=== PATIENT | female | born 1995 | race Caucasian/White ===

== ENCOUNTER 2017-02-06 19:17 | Observation (INO) | payer MEDICAID ==
[2017-02-06 19:50] VITALS: BMI 20.2
[2017-02-06] MEDS ORDERED: Sodium Chloride 0.9% 1,000 ML IV STA (20:06)
[2017-02-06] MEDS ORDERED: Morphine 2 mg/ml ISec IM STA ×2 (20:13→23:15)
[2017-02-06] MEDS ORDERED: Morphine 2 mg/ml ISec ONE (20:15)
[2017-02-06] MEDS ORDERED: Oxycodone/Acetaminophen 5/325 mg Tab PO STA (21:13)
[2017-02-06] MEDS ORDERED: Morphine 2 mg/ml ISec IVP STA (23:27)
--- NOTE | 2017-02-06 23:58 | CT ---
EXAM: CT Left Lower Extremity Without Intravenous Contrast, Femur CLINICAL HISTORY: 21 years old, female; Pain; Thigh; Left; Prior surgery; Surgery type: Tumor reduction x4; Additional info: Femur pain/ HX of tumor TECHNIQUE: Axial computed tomography images of the left femur without intravenous contrast. This CT exam was performed using one or more of the following dose reduction techniques: automated exposure control, adjustment of the mA and/or kV according to patient size, and/or use of iterative reconstruction technique. Coronal and sagittal reformatted images were created and reviewed. EXAM DATE/TIME: 02/06/2017 9:49 PM COMPARISON: Recent left femur radiographs of 02/06/2017 FINDINGS: BONES/JOINTS: Bony structures appear demineralized. Chronic-appearing deformity and inferior subluxation of the patella. No acute fractures are seen. No radiographic evidence of significant joint effusion. No evidence of lytic, destructive bony changes or aggressive periosteal reaction to suggest osteomyelitis. SOFT TISSUES: Diffusely abnormal appearance of the soft tissues. There is extensive, irregular, infiltrative soft tissue in the left thigh and hip soft tissues, anteriorly and medially. This replaces the normal anterior and medial thigh musculature. Its is associated with diffuse fatty proliferation and extensive amorphous and soft tissue calcifications. It is causing diffuse and swelling/enlargement of the left thigh. There is no definite large, measurable focal soft tissue mass seen. No evidence of a focal fluid collection containing gas to suggest an abscess. VASCULATURE: Multiple prominent superficial superficially located vessels seen, which could represent collateral vessels or venous varicosities. IMPRESSION: - Diffusely abnormal appearance of the soft tissues, with extensive, irregular, infiltrative soft tissue seen in the left thigh and hip soft tissues anteriorly and medially, which replaces the normal anterior and medial thigh musculature. This is associated with diffuse fatty proliferation and extensive soft tissue calcifications, and is causing diffuse swelling/enlargement of the left thigh. While the findings could represent marked chronic post radiation/post operative soft tissue and fatty proliferation, cannot rule out an infiltrative, complex mass with fatty and soft tissue components or acute cellulitis. Findings require clinical correlation. Also recommend direct comparison with any prior studies, if available. Alternatively, consider followup nonemergent MRI. - See above for remaining findings.
--- NOTE | 2017-02-07 00:54 | ED PDOC ---
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 Patient states she tripped and fell landed directly down on the knee. Patient states incident occurred prior to arrival. She denies fevers or chills. Patient states she has a history of an operative left thigh vascular tumor that she does not know the name of. Patient states the most recent doctor told her that it was an operative although she has had multiple prior surgeries. Patient states the swelling has drastically increased since the fall and she has excruciating pain in the leg. She is complaining of the inability to ambulate on the leg. She denies numbness or tingling in the lower extremity at present time. No medications have been taken for pain at home. (Sophia Moore) Past Medical History - Provider Review Nursing Documentation Reviewed: Yes - Travel History Have you recently traveled outside [place] w/in the past 3 mons?: No - Cardiac Hx Cardiac Disorders: No - Pulmonary Hx Respiratory Disorders: Yes Hx Asthma: Yes - Neurological Hx Neurological Disorder: No - HEENT Hx HEENT Disorder: No - Renal Hx Renal Disorder: No - Endocrine/Metabolic Hx Endocrine Disorders: No - Hematological/Oncological Hx Blood Disorders: Yes Other/Comment: left leg vascular tumor - Integumentary Hx Dermatological Disorder: No - Musculoskeletal/Rheumatological Hx Musculoskeletal Disorders: No - Gastrointestinal Hx Gastrointestinal Disorders: No - Genitourinary/Gynecological Hx Genitourinary Disorders: No - Psychiatric Hx Psychophysiologic Disorder: No Hx Substance Use: No - Surgical History Other/Comment: tumor reduction X4 <Sophia Moore - Last Filed: 02/07/17 03:50> Family/Social History - Physician Review Nursing Documentation Reviewed: Yes Family/Social History: Unknown Family HX Smoking Status: Never Smoked Hx Alcohol Use: No Hx Substance Use: No <Sophia Moore - Last Filed: 02/07/17 03:50> Allergies/Home Meds <Sophia Moore T - Last Filed: 02/07/17 03:50> <YvroseNoah T - Last Filed: 02/07/17 05:36> Allergies/Adverse Reactions: Allergies No Known Allergies Allergy (Verified 02/06/17 19:49) Home Medications: Home Meds Medication Instructions Recorded Confirmed No Known Home Med 02/06/17 02/06/17 Review of Systems - Review of Systems Constitutional: absent: Fatigue, Fevers Respiratory: absent: SOB, Cough Cardiovascular: absent: Chest Pain, Palpitations Gastrointestinal: absent: Abdominal Pain, Nausea, Vomiting Genitourinary Female: absent: Dysuria, Frequency, Hematuria Musculoskeletal: Arthralgias, Joint Swelling. absent: Back Pain, Neck Pain Skin: absent: Rash, Pruritis Neurological: absent: Headache, Dizziness Psychiatric: absent: Anxiety, Depression <Sophia Moore T - Last Filed: 02/07/17 03:50> Physical Exam Vital Signs Reviewed: Yes Temperature: Afebrile Blood Pressure: Hypotensive Pulse: Regular Respiratory Rate: Normal Appearance: Positive for: Well-Appearing, Non-Toxic, Comfortable Pain Distress: None Mental Status: Positive for: Alert and Oriented X 3 - Systems Exam Head: Present: Atraumatic Mouth: Present: Moist Mucous Membranes Neck: Present: Normal Range of Motion Respiratory/Chest: Present: Clear to Auscultation, Good Air Exchange. No: Respiratory Distress, Accessory Muscle Use Cardiovascular: Present: Regular Rate and Rhythm, Normal S1, S2. No: Murmurs Abdomen: No: Tenderness, Distention, Peritoneal Signs, Rebound Back: Present: Normal Inspection. No: Midline Tenderness, Paraspinal Tenderness Upper Extremity: Present: Normal ROM Lower Extremity: Present: NORMAL PULSES, Tenderness (+ tenderness, swelling noted to thigh, + tenderness over anterior aspect of knee; + edema over the anterior aspect of the knee and entire thigh, edema does not extend distally beyond the anterior knee. old Midline incisional scar noted . Thigh is not tense. there is varicose veins noted to anterior thigh; no calf tenderness. sensation and distal pulses intact; cap refill <2. full rom of toes/ankle. limited rom at knee. ), Swelling, Neurovascularly Intact, Capillary Refill < 2 s. No: CALF TENDERNESS, Normal ROM, Erythema Neurological: Present: GCS=15, Speech Normal Skin: Present: Warm, Dry Psychiatric: Present: Alert, Oriented x 3 <Sophia Moore T - Last Filed: 02/07/17 03:50> Medical Decision Making <Sophia Moore T - Last Filed: 02/07/17 03:50> - RAD Interpretation Pc Tech: Radiologist <Noah Frances T - Last Filed: 02/07/17 05:36> ED Course and Treatment: 02/07/17 00:55 21yr old female with left leg pain and swelling s/p injury. hx of vascular tumur with 4 prior surgeries. morphine x 2 xray left knee; no fracture xray left femur; no fracture + calcifications ct thigh; FINDINGS: BONES/JOINTS: Bony structures appear demineralized. Chronic-appearing deformity and inferior subluxation of the patella. No acute fractures are seen. No radiographic evidence of significant joint effusion. No evidence of lytic, destructive bony changes or aggressive periosteal reaction to suggest osteomyelitis. SOFT TISSUES: Diffusely abnormal appearance of the soft tissues. There is extensive, irregular, infiltrative soft tissue in the left thigh and hip soft tissues, anteriorly and medially. This replaces the normal anterior and medial thigh musculature. Its is associated with diffuse fatty proliferation and extensive amorphous and soft tissue calcifications. It is causing diffuse and swelling/enlargement of the left thigh. There is no definite large, measurable focal soft tissue mass seen. No evidence of a focal fluid collection containing gas to suggest an abscess. VASCULATURE: Multiple prominent superficial superficially located vessels seen, which could represent collateral vessels or venous varicosities. IMPRESSION: - Diffusely abnormal appearance of the soft tissues, with extensive, irregular, infiltrative soft tissue seen in the left thigh and hip soft tissues anteriorly and medially, which replaces the normal anterior and medial thigh musculature. This is associated with diffuse fatty proliferation and extensive soft tissue calcifications, and is causing diffuse swelling/enlargement of the left thigh. While the findings could represent marked chronic post radiation/post operative soft tissue and fatty proliferation, cannot rule out an infiltrative, complex mass with fatty and soft tissue components or acute cellulitis. Findings require clinical correlation. Also recommend direct comparison with any prior studies, if available. Alternatively, consider followup nonemergent MRI. pt reassessment; still c/o pain to left thigh. after multiple doses of medication pt still with pain; There is significant swelling to the left thigh with tenderness greatest over the anterior superior knee; pt able to move ankle and toes there is no pallor, no paresthesias, posterior tibial and dorsalis pedis pulses are present. Cap refill is less than 2. 02/07/17 02:[address] harper; pt with swelling to left thigh; s/p trauma hx of vascular tumor; increasing swelling; will repeat CT with IV contrast. 02/07/17 02:51 pt resting comfortably in er; no distress at present time. sleeping in er. dr. Frances discussed case with dr. harper; he will be on consult for the case. case signed out to dr. FRANCES pending CT with IV contrast. (Sophia Moore) 02/07/17 04:51 CT lower extremity with contrast results reviewed: Impression: - Extensive infiltrative soft tissue, fatty tissue, and calcifications in the left thigh soft tissues, which replaces the anterior and medial musculature. This is associated with enhancement and soft tissue enlargement, and cannot exclude a complex, infiltrative mass with vascular, fatty and soft tissue components. 02/07/17 05:35 Dr. Harper accepts patient for consult. Dr. Ding accepts patient to hospitalist service for thigh swelling and pain, ambulation failure, and intractible pain. (Noah Frances) - Lab Interpretations Lab Results: 02/07/17 02:00 02/07/17 02:00 Lab Results 02/07/17 02:00: WBC 7.4, RBC 3.86, Hgb 10.1 L, Hct 31.4 L, MCV 81.3, MCH 26.2, MCHC 32.2, RDW 17.2 H, Plt Count 283, MPV 10.4, Gran % 50.0, Lymph % (Auto) 38.6 H, [place] % (Auto) 7.4 H, Eos % (Auto) 3.9, Baso % (Auto) 0.1, Gran # 3.71, Lymph # 2.9, [place] # 0.6, Eos # 0.3, Baso # 0.01 02/07/17 02:00: Sodium 139, Potassium 3.8, Chloride 108 H, Carbon Dioxide 23, Anion Gap 12, BUN 14, Creatinine 0.6, Est GFR ( Amer) > 60, Est GFR (Non- Af Amer) > 60, Random Glucose 89, Calcium 8.7, Total Bilirubin 0.5, AST 17, ALT 22, Alkaline Phosphatase 76, Total Protein 6.8, Albumin 3.5, Globulin 3.4, Albumin/Globulin Ratio 1.0 L 02/07/17 02:00: PT 11.4, INR 1.06, APTT 30.1 - RAD Interpretation Narrative RAD Interpretations (Text): EXAM: CT Left Lower Extremity With Intravenous Contrast, Femur FINDINGS: BONES/JOINTS: Bony structures appear demineralized. Chronic-appearing deformity and inferior subluxation of the patella. No acute fractures are seen. No evidence of acute dislocation. SOFT TISSUES: As seen on the recent noncontrast CT, there is extensive, infiltrative appearing soft tissue in the anterior and medial left thigh and hip soft tissues, which essentially replaces the anterior and medial thigh musculature, and is associated with masslike areas of fat density and multiple amorphous calcifications. This process has mass effect, causing significant enlargement of the thigh, and it does appear to demonstrate enhancement, with a vascular component. No evidence of soft tissue gas. No evidence of focal soft tissue fluid collection/abscess. VASCULATURE: Again seen are extensive prominent vessels in the subcutaneous fat , which could represent collateral venous vessels due to chronic venous obstruction or venous varicosities. Impression: - Extensive infiltrative soft tissue, fatty tissue, and calcifications in the left thigh soft tissues, which replaces the anterior and medial musculature. This is associated with enhancement and soft tissue enlargement, and cannot exclude a complex, infiltrative mass with vascular, fatty and soft tissue components. - See above for remaining findings. Dictated and Authenticated by: Jeane Barnard MD 02/07/2017 4:45 AM Eastern Time ([place] & [place]) (Noah Frances) Radiology Orders: 02/06/17 20:05 FEMUR MIN 2 VIEWS LT [RAD] Stat KNEE LEFT 2 VIEWS (AP & LAT) [RAD] Stat 02/06/17 21:49 EXT LOWER W/O CONTRAST LEFT [CT] Stat 02/07/17 02:50 EXT LOWER WITH CONTRAST LEFT [CT] Stat - Medication Orders Current Medication Orders: Morphine Sulfate (Morphine) 1 mg IVP Q4 PRN PRN Reason: Pain, severe (8-10) Ondansetron HCl (Zofran Inj) 4 mg IVP Q6 PRN PRN Reason: Nausea/Vomiting Discontinued Medications Sodium Chloride (Sodium Chloride 0.9%) 1,000 mls @ 999 mls/hr IV .Q1H1M STA Stop: 02/06/17 21:06 Last Admin: 02/06/17 22:02 Dose: 999 mls/hr Iohexol (Omnipaque 350 100 Ml) Confirm Administered Dose 350 mg .ROUTE .STK-MED ONE Stop: 02/07/17 02:55 Morphine Sulfate (Morphine) 2 mg IM STAT STA Stop: 02/06/17 20:14 Last Admin: 02/06/17 20:15 Dose: 2 mg Re-Assess: [facility] Pain Assessment Document 02/06/17 21:15 CAST (Rec: 02/06/17 21:27 CAST [id number]) Pain Reassessment Is this a pain reassessment? Yes Sleep Is patient sleeping during reassessment? No Presence of Pain Presence of Pain Yes Pain Scale Used Pain Scale Used Numeric Location Left, Right or Bilateral Left Pain Location Body Site Leg Description Description Constant Intensity of Pain at present 8 Pain Behavior Facial Grimacing Aggravating Factors Changing Position Alleviating Factors/Management Position Change Techniques Alleviating Factors Medication Morphine Sulfate (Morphine) Confirm Administered Dose 2 mg .ROUTE .STK-MED ONE Stop: 02/06/17 20:16 Last Admin: 02/06/17 21:26 Dose: Morphine Sulfate (Morphine) 2 mg IVP STAT STA Stop: 02/06/17 23:28 Last Admin: 02/06/17 23:57 Dose: 2 mg Ondansetron HCl (Zofran Odt) Confirm Administered Dose 4 mg .ROUTE .STK-MED ONE Stop: 02/06/17 21:19 Last Admin: 02/06/17 21:36 Dose: Ondansetron HCl (Zofran Odt) 4 mg PO STAT STA Stop: 02/06/17 21:34 Last Admin: 02/06/17 21:36 Dose: 4 mg Oxycodone/Acetaminophen (Percocet 5/325 Mg Tab) 1 tab PO STAT STA Stop: 02/06/17 21:14 Last Admin: 02/06/17 21:56 Dose: 1 tab Disposition/Present on Arrival - Present on Arrival Any Indicators Present on Arrival: No History of DVT/PE: No History of Uncontrolled Diabetes: No Urinary Catheter: No History of Decub. Ulcer: No History Surgical Site Infection Following: None - Disposition Have Diagnosis and Disposition been Completed?: Yes <Sophia Moore T - Last Filed: 02/07/17 03:50> - Disposition Disposition Time: 05:36 <Noah Frances T - Last Filed: 02/07/17 05:36> - Disposition Diagnosis: Leg pain Condition: STABLE
[2017-02-07 02:12] LABS: ADD MANUAL DIFF? NO
[2017-02-07 02:18] LABS: BASO # 0.01 K/mm3 (0.0-2.0); BASO % 0.1 % (0.0-3.0); EOS # 0.3 (0.0-0.7); EOS % 3.9 % (1.5-5.0); GRAN # 3.71 (1.4-6.5); HEMATOCRIT 31.4 % (36.0-48.0); LYMPH # 2.9 (1.2-3.4); LYMPH % 38.6 % (22.0-35.0); MEAN CELL VOLUME 81.3 fL (80.0-105.0); MEAN CORPUSCULAR HEMOGLOBIN 26.2 pg (25.0-35.0); MEAN CORPUSCULAR HGB CONC 32.2 g/dl (31.0-37.0); MEAN PLATELET VOLUME 10.4 fl (7.0-11.0); MONO # 0.6 (0.1-0.6); MONO % 7.4 % (1.0-6.0); PLATELET COUNT 283 10^3/uL (120.0-450.0); RED CELL DISTRIBUTION WIDTH 17.2 % (11.5-14.5); WHITE BLOOD COUNT 7.4 10^3/ul (4.5-11.0)
[2017-02-07 02:20] LABS: ALKALINE PHOSPHATASE 76 U/L (38-133); ALT/SGPT 22 U/L (7-56); AST/SGOT 17 U/L (15-39); BILIRUBIN,TOTAL 0.5 mg/dL (0.2-1.3); BLOOD UREA NITROGEN 14 mg/dL (7-21); CALCIUM 8.7 mg/dL (8.4-10.5); CARBON DIOXIDE 23 mmol/L (21-33); CHLORIDE 108 mmol/L (98-107); GFR AFRICAN-AMERICAN > 60; GLUCOSE,RANDOM 89 mg/dL (70-110); INR 1.06 (0.93-1.08); PARTIAL THROMBOPLASTIN TIME 30.1 Seconds (23.7-30.8); POTASSIUM 3.8 mmol/L (3.6-5.0); SODIUM 139 mmol/L (132-148); TOTAL PROTEIN 6.8 g/dL (5.8-8.3)
[2017-02-07] MEDS ORDERED: Iohexol 350 MG/100 ML VIAL ONE (02:54)
--- NOTE | 2017-02-07 04:45 | CT ---
EXAM: CT Left Lower Extremity With Intravenous Contrast, Femur CLINICAL HISTORY: 21 years old, female; Pain; Thigh; Left; Additional info: Leg pain TECHNIQUE: Axial computed tomography images of the left femur with intravenous contrast. This CT exam was performed using one or more of the following dose reduction techniques: automated exposure control, adjustment of the mA and/or kV according to patient size, and/or use of iterative reconstruction technique. Coronal and sagittal reformatted images were created and reviewed. CONTRAST: 96 mL of OMNI 350 administered intravenously. EXAM DATE/TIME: 02/07/2017 2:50 AM COMPARISON: Recent noncontrast CT of 02/06/2017, 10:35 PM FINDINGS: BONES/JOINTS: Bony structures appear demineralized. Chronic-appearing deformity and inferior subluxation of the patella. No acute fractures are seen. No evidence of acute dislocation. SOFT TISSUES: As seen on the recent noncontrast CT, there is extensive, infiltrative appearing soft tissue in the anterior and medial left thigh and hip soft tissues, which essentially replaces the anterior and medial thigh musculature, and is associated with masslike areas of fat density and multiple amorphous calcifications. This process has mass effect, causing significant enlargement of the thigh, and it does appear to demonstrate enhancement, with a vascular component. No evidence of soft tissue gas. No evidence of focal soft tissue fluid collection/abscess. VASCULATURE: Again seen are extensive prominent vessels in the subcutaneous fat, which could represent collateral venous vessels due to chronic venous obstruction or venous varicosities. IMPRESSION: - Extensive infiltrative soft tissue, fatty tissue, and calcifications in the left thigh soft tissues, which replaces the anterior and medial musculature. This is associated with enhancement and soft tissue enlargement, and cannot exclude a complex, infiltrative mass with vascular, fatty and soft tissue components. - See above for remaining findings.
[2017-02-07] MEDS ORDERED: Morphine 2 mg/ml ISec IVP PRN (05:18)
--- NOTE | 2017-02-07 05:58 | CP.PCM.HP ---
<Mauro Barrientos - Last Filed: 02/07/17 05:26> History of Present Illness - History of Present Illness History of Present Illness: 21 year old female with past medical history of left thigh tumor presents to [facility] complaining of left thigh swelling after experiencing a fall. Patient reports she tripped and fell on the side walk and landed on her knees. She also reports hearing a loud "pop" at the time of the fall. The fall happened approximately at 7pm last night and since then her left thigh swelling has been getting progressively worse. Stating that swelling is about 3 times larger than before. Patient also report to have decreased sensory function on left lower extremity. Patient describes the pain has sharp and tight in quality, rates its 10/10 in intensity, radiates down to her left foot, the pain is worse with movement. 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 She had 4 surgeries total on her thigh, with the latest one in 2010 at [facility]. She has been following up with Dr. Jordan, a vascular surgeon at [facility] in [place]. Patient and her moved to [place] from [place] 1 month ago. At baseline patient walks with a limp, without a cane or a walker. Patient did not injure other areas of her body besides the left knee. Patient denies having fever, chills, headache, dizziness, shortness of breath, chest pain, abdominal pain, vomiting, diarrhea, or urinary symptoms. PMD: none at the moment, scheduled an appointment to see Dr. Gerber PMHx: vascular tumor of left thigh PSHx: surgery on left thigh x 4 Allergy: NKDA Sociall Hx: Denies tobacco, alcohol and other drug use Family Hx: non contributory Home meds: none Present on Admission - Present on Admission Any Indicators Present on Admission: No History of DVT/PE: No History of Uncontrolled Diabetes: No Review of Systems - Constitutional Constitutional: As Per HPI. absent: Chills, Fever, Lethargy - EENT Eyes: As Per HPI. absent: Dry Eye, Irritation, Loss of Vision Ears: As Per HPI. absent: Disequilibrium, Dizziness Nose/Mouth/Throat: As Per HPI. absent: Nasal Discharge, Dry Mouth, Dysphagia - Cardiovascular Cardiovascular: As Per HPI, Edema, Leg Edema. absent: Chest Pain, Diaphoresis, Dyspnea, Lightheadedness, Syncope - Respiratory Respiratory: As Per HPI. absent: Cough, Dyspnea, Wheezing - Gastrointestinal Gastrointestinal: As Per HPI. absent: Abdominal Pain, Constipation, Diarrhea, Nausea, Vomiting - Genitourinary Genitourinary: As Per HPI. absent: Urinary Frequency, Urinary Hesitance, Urinary Urgency - Reproductive: Female Reproductive:Female: As Per HPI, Currently Menstual - Menstruation Menstruation: As Per HPI, Currently Menstual - Musculoskeletal Musculoskeletal: As Per HPI, Joint Swelling. absent: Back Pain - Integumentary Integumentary: As Per HPI Additional comments: surgical scar on left thigh - Neurological Neurological: As Per HPI, Sensory Deficit (worsened after the fall). absent: Dizziness, Loss of Vision, Syncope - Psychiatric Psychiatric: As Per HPI. absent: Anxiety, Depression, Difficulty Concentrating , Irritability - Endocrine Endocrine: As Per HPI Past Patient History - Past Social History Smoking Status: Never Smoked - CARDIAC Hx Cardiac Disorders: No - PULMONARY Hx Respiratory Disorders: Yes Hx Asthma: Yes - NEUROLOGICAL Hx Neurological Disorder: No - HEENT Hx HEENT Problems: No - RENAL Hx Chronic Kidney Disease: No - ENDOCRINE/METABOLIC Hx Endocrine Disorders: No - HEMATOLOGICAL/ONCOLOGICAL Hx Blood Disorders: Yes Other/Comment: left leg vascular tumor - INTEGUMENTARY Hx Dermatological Problems: No - MUSCULOSKELETAL/RHEUMATOLOGICAL Hx Musculoskeletal Disorders: No - GASTROINTESTINAL Hx Gastrointestinal Disorders: No - GENITOURINARY/GYNECOLOGICAL Hx Genitourinary Disorders: No - PSYCHIATRIC Hx Psychophysiologic Disorder: No Hx Substance Use: No - SURGICAL HISTORY Other/Comment: tumor reduction X4 Meds Allergies/Adverse Reactions: Allergies Allergy/AdvReac Type Severity Reaction Status Date / Time tramadol Allergy Mild RASH Verified 02/07/17 14:16 Physical Exam - Constitutional Appears: Non-toxic, No Acute Distress - Head Exam Head Exam: ATRAUMATIC, NORMAL INSPECTION, NORMOCEPHALIC - Eye Exam Eye Exam: EOMI, Normal appearance, PERRL - ENT Exam ENT Exam: Mucous Membranes Moist - Neck Exam Neck exam: Positive for: Normal Inspection - Respiratory Exam Respiratory Exam: Clear to Auscultation Bilateral, NORMAL BREATHING PATTERN. absent: Rhonchi, Wheezes, Respiratory Distress - Cardiovascular Exam Cardiovascular Exam: REGULAR RHYTHM, RRR, +S1, +S2 - GI/Abdominal Exam GI & Abdominal Exam: Normal Bowel Sounds, Soft. absent: Distended, Hernia, Hyperactive Bowel Sounds, Tenderness - Extremities Exam Extremities exam: Positive for: joint swelling, tenderness, pedal pulses present. Negative for: full ROM, normal inspection Additional comments: Extensive left thigh swelling, warm, pain to palpation, surgical scar approximately 30cm on anterior surface. No ecchymosis appreciated. Limited left hip and knee range of movement due to pain and swelling. PT and DP pulses present. - Back Exam Back exam: NORMAL INSPECTION - Neurological Exam Neurological exam: Alert, Motor Sensory Deficit (decreased sensory function on left thigh), Oriented x3 - Psychiatric Exam Psychiatric exam: Normal Affect, Normal Mood - Skin Skin Exam: Dry, Intact, Warm Additional comments: Chronic anterior thigh vascular discoloration Results - Vital Signs Recent Vital Signs: Last Vital Signs Temp 98.3 F 02/06/17 23:56 Pulse 91 H 02/07/17 04:07 Resp 16 02/07/17 04:07 BP 93/59 L 02/07/17 04:17 Pulse Ox 100 02/07/17 04:07 - Labs Result Diagrams: 02/07/17 02:00 02/07/17 02:00 Labs: Laboratory Results - last 24 hr 02/07/17 02/07/17 02/07/17 02:00 02:00 02:00 WBC 7.4 RBC 3.86 Hgb 10.1 L Hct 31.4 L MCV 81.3 MCH 26.2 MCHC 32.2 RDW 17.2 H Plt Count 283 MPV 10.4 Gran % 50.0 Lymph % (Auto) 38.6 H [place] % (Auto) 7.4 H Eos % (Auto) 3.9 Baso % (Auto) 0.1 Gran # 3.71 Lymph # 2.9 [place] # 0.6 Eos # 0.3 Baso # 0.01 PT 11.4 INR 1.06 APTT 30.1 Sodium 139 Potassium 3.8 Chloride 108 H Carbon Dioxide 23 Anion Gap 12 BUN 14 Creatinine 0.6 Est GFR ( Amer) > 60 Est GFR (Non-Af Amer) > 60 Random Glucose 89 Calcium 8.7 Total Bilirubin 0.5 AST 17 ALT 22 Alkaline Phosphatase 76 Total Protein 6.8 Albumin 3.5 Globulin 3.4 Albumin/Globulin Ratio 1.0 L Assessment & Plan - Assessment and Plan (Free Text) Assessment: 21 year old female with past medical history of left thigh vascular tumor presents with left thigh swelling s/p mechanical fall to the left knee Plan: Left thigh swelling s/p fall -Quadriceps tendon rupture vs compartment syndrome -Orthopedic consult, Dr. Duong help appreciated -X ray left knee and femur negative for fracture -CT left knee with contrast showed extensive infiltrative soft tissue, fatty tissue, and calcifications in the left thigh soft tissues, which replaces the anterior and medial musculature. This is associated with enhancement and soft tissue enlargement, and cannot exclude a complex, infiltrative mass with vascular, fatty and soft tissue components (see full report) -Follow up MRI left thigh -Morphine 1mg iv 4q prn -Zofran 4mg iv q6 prn History left thigh vascular tumor -Will reach out to Dr. Jordan at [facility] in [place] for further information and recommendations <Parth Ding P - Last Filed: 02/16/17 19:39> Results - Vital Signs Recent Vital Signs: Last Vital Signs Temp 98.2 F 02/07/17 17:07 Pulse 78 02/07/17 17:07 Resp 20 02/07/17 17:07 BP 100/62 02/07/17 17:07 Pulse Ox 99 02/07/17 17:07 - Labs Result Diagrams: 02/07/17 02:00 02/07/17 02:00 Attending/Attestation - Attestation I have personally seen and examined this patient.: Yes I have fully participated in the care of the patient.: Yes I have reviewed all pertinent clinical information: Yes
--- NOTE | 2017-02-07 08:51 | RAD ---
PROCEDURE: Left Knee Radiographs. HISTORY: Pain. COMPARISON: None. FINDINGS: BONES: Limited examination. No true lateral view submitted. No fracture identified. Corticated ossific density seen superior to the patella, in the oblique/lateral view, uncertain significance. Similar corticated ossific density inferior to the inferior pole of the patella, nonspecific. A amorphous dystrophic calcifications seen in posterior medial soft tissues at the level of the knee and anterior medial soft tissues at the level of the mid femoral diaphysis. Nonspecific. Possibly posttraumatic or the result of a myositis. Please correlate. JOINTS: Normal. No osteoarthritis. JOINT EFFUSION: None. OTHER FINDINGS: Extensive circumferential soft tissue seen about the femur. IMPRESSION: Limited examination. No fracture identified. Dystrophic calcification about the mid and distal femur, uncertain significance. Possibly post traumatic or the result of prior myositis.
--- NOTE | 2017-02-07 08:52 | RAD ---
PROCEDURE: Left femur HISTORY: fall, leg pain/swelling COMPARISON: Not available TECHNIQUE: AP and lateral radiographs FINDINGS: Extensive soft tissue swelling seen about the femur. Dystrophic a amorphous calcification noted medial to the mid and distal femur, nonspecific. Possibly posttraumatic or post myositis. No osseous fracture. IMPRESSION: Nonspecific calcification medial to the mid and distal femur. Soft tissue swelling. No acute fracture.
[2017-02-07] MEDS ORDERED: Oxycodone/Acetaminophen 5/325 mg Tab PO PRN (13:23)
[2017-02-07 17:08] VITALS: BP 100/62; PULSE 78; RESP 20; TEMP 98.2; O2SAT 99
[2017-02-07] MEDS ORDERED: Gadodiamide 287 MG/ML VIAL (15ML) IV ONE (19:19)
--- NOTE | 2017-02-08 07:30 | CP.PCM.DIS ---
<Hardeep Mccoy - Last Filed: 02/09/17 14:40> Provider - Provider Date of Admission: 02/07/17 05:13 Attending physician: Elina Beth MD Consults: Ortho: Dr. Nelson Time Spent in preparation of Discharge (in minutes): 45 Hospital Course - Lab Results Lab Results: Most Recent Lab Values WBC 7.4 10^3/ul (4.5-11.0) 02/07/17 02:00 RBC 3.86 10^6/uL (3.5-6.1) 02/07/17 02:00 Hgb 10.1 gm/dL (12.0-16.0) L 02/07/17 02:00 Hct 31.4 % (36.0-48.0) L 02/07/17 02:00 MCV 81.3 fL (80.0-105.0) 02/07/17 02:00 MCH 26.2 pg (25.0-35.0) 02/07/17 02:00 MCHC 32.2 g/dl (31.0-37.0) 02/07/17 02:00 RDW 17.2 % (11.5-14.5) H 02/07/17 02:00 Plt Count 283 10^3/uL (120.0-450.0) 02/07/17 02:00 MPV 10.4 fl (7.0-11.0) 02/07/17 02:00 Gran % 50.0 % (50.0-68.0) 02/07/17 02:00 Lymph % (Auto) 38.6 % (22.0-35.0) H 02/07/17 02:00 Delta % (Auto) 7.4 % (1.0-6.0) H 02/07/17 02:00 Eos % (Auto) 3.9 % (1.5-5.0) 02/07/17 02:00 Baso % (Auto) 0.1 % (0.0-3.0) 02/07/17 02:00 Gran # 3.71 (1.4-6.5) 02/07/17 02:00 Lymph # 2.9 (1.2-3.4) 02/07/17 02:00 Delta # 0.6 (0.1-0.6) 02/07/17 02:00 Eos # 0.3 (0.0-0.7) 02/07/17 02:00 Baso # 0.01 K/mm3 (0.0-2.0) 02/07/17 02:00 PT 11.4 Seconds (9.9-11.8) 02/07/17 02:00 INR 1.06 (0.93-1.08) 02/07/17 02:00 APTT 30.1 Seconds (23.7-30.8) 02/07/17 02:00 Sodium 139 mmol/L (132-148) 02/07/17 02:00 Potassium 3.8 mmol/L (3.6-5.0) 02/07/17 02:00 Chloride 108 mmol/L (98-107) H 02/07/17 02:00 Carbon Dioxide 23 mmol/L (21-33) 02/07/17 02:00 Anion Gap 12 (10-20) 02/07/17 02:00 BUN 14 mg/dL (7-21) 02/07/17 02:00 Creatinine 0.6 mg/dL (0.5-1.4) 02/07/17 02:00 Est GFR ( Amer) > 60 02/07/17 02:00 Est GFR (Non-Af Amer) > 60 02/07/17 02:00 Random Glucose 89 mg/dL (70-110) 02/07/17 02:00 Calcium 8.7 mg/dL (8.4-10.5) 02/07/17 02:00 Total Bilirubin 0.5 mg/dL (0.2-1.3) 02/07/17 02:00 AST 17 U/L (15-39) 02/07/17 02:00 ALT 22 U/L (7-56) 02/07/17 02:00 Alkaline Phosphatase 76 U/L (38-133) 02/07/17 02:00 Total Protein 6.8 g/dL (5.8-8.3) 02/07/17 02:00 Albumin 3.5 g/dL (3.0-4.8) 02/07/17 02:00 Globulin 3.4 gm/dL 02/07/17 02:00 Albumin/Globulin Ratio 1.0 (1.1-1.8) L 02/07/17 02:00 - Hospital Course Hospital Course: Upon Admission: 21yo F with PMHx of Left Thigh Vascular tumor s/p 4 attempts at resection ([facility]) here for evaluation of acute swelling. Patient recently moved here from [place]. Patient states that she was jogging with her boyfriend when she tripped and fell on both of her knees. In the ER, X-rays of the left knee and femur showed no acute fractures. CT with contrast of left lower extremity showed extensive soft tissue, fatty tissue, calcifications, replacing the anterior and medial musculature. Ortho consult was obtained. MRI was ordered, however, patient was advised to follow up at [facility] for further management at a higher level facility. On day one, patient began demanding a fentanyl patch for pain management as she claimed she was prescribed it by her PMD in [place]. Patient's pharmacy was contacted who state that the patient never filled a prescription for a fentanyl patch. They did confirm a prescription filled for tramadol and Percocet. Patient was offered tramadol, however she stated a tramadol allergy which she had not mentioned previously. Percocet was started. Soon after patient returned from MRI, she elected to leave [facility]. She then requested another percocet and eloped prior to signing AMA paperwork when she was refused another percocet. 1. Acute swelling of left knee, thigh. 2. Hx of Left thigh vascular tumor. Patient eloped. Discharge Exam - Head Exam Head Exam: ATRAUMATIC, NORMAL INSPECTION, NORMOCEPHALIC - Eye Exam Eye Exam: EOMI, Normal appearance. absent: Scleral icterus - ENT Exam ENT Exam: Mucous Membranes Moist - Respiratory Exam Respiratory Exam: NORMAL BREATHING PATTERN - Cardiovascular Exam Cardiovascular Exam: RRR, +S1, +S2. absent: JVD - GI/Abdominal Exam GI & Abdominal Exam: Soft. absent: Distended, Rigid - Extremities Exam Additional comments: Left Leg: Extensive left thigh swelling, pain to palpation, surgical scar present. No ecchymosis. Limited left hip and knee range of movement. PT and DP pulses palpable. - Neurological Exam Neurological exam: Alert, Oriented x3 - Psychiatric Exam Psychiatric exam: Normal Affect, Normal Mood - Skin Skin Exam: Dry, Intact, Normal Color, Warm Discharge Plan - Follow Up Plan Condition: GUARDED Disposition: AGAINST MEDICAL ADVICE <Ignacia,Anwar A - Last Filed: 02/09/17 15:56> Provider - Provider Date of Admission: 02/07/17 05:13 Attending physician: Elina Beth MD Hospital Course - Lab Results Lab Results: Most Recent Lab Values WBC 7.4 10^3/ul (4.5-11.0) 02/07/17 02:00 RBC 3.86 10^6/uL (3.5-6.1) 02/07/17 02:00 Hgb 10.1 gm/dL (12.0-16.0) L 02/07/17 02:00 Hct 31.4 % (36.0-48.0) L 02/07/17 02:00 MCV 81.3 fL (80.0-105.0) 02/07/17 02:00 MCH 26.2 pg (25.0-35.0) 02/07/17 02:00 MCHC 32.2 g/dl (31.0-37.0) 02/07/17 02:00 RDW 17.2 % (11.5-14.5) H 02/07/17 02:00 Plt Count 283 10^3/uL (120.0-450.0) 02/07/17 02:00 MPV 10.4 fl (7.0-11.0) 02/07/17 02:00 Gran % 50.0 % (50.0-68.0) 02/07/17 02:00 Lymph % (Auto) 38.6 % (22.0-35.0) H 02/07/17 02:00 Delta % (Auto) 7.4 % (1.0-6.0) H 02/07/17 02:00 Eos % (Auto) 3.9 % (1.5-5.0) 02/07/17 02:00 Baso % (Auto) 0.1 % (0.0-3.0) 02/07/17 02:00 Gran # 3.71 (1.4-6.5) 02/07/17 02:00 Lymph # 2.9 (1.2-3.4) 02/07/17 02:00 Delta # 0.6 (0.1-0.6) 02/07/17 02:00 Eos # 0.3 (0.0-0.7) 02/07/17 02:00 Baso # 0.01 K/mm3 (0.0-2.0) 02/07/17 02:00 PT 11.4 Seconds (9.9-11.8) 02/07/17 02:00 INR 1.06 (0.93-1.08) 02/07/17 02:00 APTT 30.1 Seconds (23.7-30.8) 02/07/17 02:00 Sodium 139 mmol/L (132-148) 02/07/17 02:00 Potassium 3.8 mmol/L (3.6-5.0) 02/07/17 02:00 Chloride 108 mmol/L (98-107) H 02/07/17 02:00 Carbon Dioxide 23 mmol/L (21-33) 02/07/17 02:00 Anion Gap 12 (10-20) 02/07/17 02:00 BUN 14 mg/dL (7-21) 02/07/17 02:00 Creatinine 0.6 mg/dL (0.5-1.4) 02/07/17 02:00 Est GFR ( Amer) > 60 02/07/17 02:00 Est GFR (Non-Af Amer) > 60 02/07/17 02:00 Random Glucose 89 mg/dL (70-110) 02/07/17 02:00 Calcium 8.7 mg/dL (8.4-10.5) 02/07/17 02:00 Total Bilirubin 0.5 mg/dL (0.2-1.3) 02/07/17 02:00 AST 17 U/L (15-39) 02/07/17 02:00 ALT 22 U/L (7-56) 02/07/17 02:00 Alkaline Phosphatase 76 U/L (38-133) 02/07/17 02:00 Total Protein 6.8 g/dL (5.8-8.3) 02/07/17 02:00 Albumin 3.5 g/dL (3.0-4.8) 02/07/17 02:00 Globulin 3.4 gm/dL 02/07/17 02:00 Albumin/Globulin Ratio 1.0 (1.1-1.8) L 02/07/17 02:00 Discharge Plan - Follow Up Plan Patient education suggested?: Yes Attending/Attestation - Attestation I have personally seen and examined this patient.: Yes I have fully participated in the care of the patient.: Yes I have reviewed all pertinent clinical information, including history, physical exam and plan: Yes Notes (Text): 02/09/17 15:52 21 year old female with past medical history of left thigh vascular tumor s/p multiple surgeries at [place] who presented after a fall with injury to her leg. She reported pain and swelling since the fall. Xrays were negative for acute fracture. CT showed extensive soft tissue, fatty tissue, calcifications, replacing the anterior and medial musculature. She was seen by orthopedics who ordered for MRI and suggested follow up at [facility]. However overnight she eloped as above. Elina Beth MD Hospitalist.
--- NOTE | 2017-02-10 15:16 | MRI ---
MRI left knee History: History of vascular tumors. Acute onset knee pain post injury. Comparison: CT scan dated 02/06/2017 Technique: Multi-echo multiplanar sequences were performed through the left knee without the use of intravenous contrast. Findings: Anterior cruciate ligament is preserved. Moderate grade sprain of the posterior cruciate ligament. Medial meniscus is preserved. Blunting of the tip of the body of the lateral meniscus may represent a small tear. Medial collateral ligament is preserved. Lateral collateral ligament complex structures are preserved. Prominent fraying and irregularity noted at the distal quadriceps tendon concerning for prominent partial/near complete tearing. Patella is inferiorly displaced. Foreshortening of the patellar tendon. Prominent reactive edema noted within the mid to lower pole of the posterior patella which may represent bone bruising versus subchondral fracturing versus subchondral osseous injury. Prominent ossific density measuring 1.2 centimeters at the anterior tibial tubercle with some reactive edema. Small loculated knee joint effusion. Extensive signal abnormality seen throughout the visualized soft tissues of the thigh and anterior knee consistent with the patient's history of multiple vascular malformations/lesions with extensive postsurgical changes. Within the medial anterior musculature and soft tissues at the level of the distal tibia there is prominent enhancing signal abnormality measuring 4.7 x 2.6 centimeters. In correlation with the recent CT scan there are associated peripheral calcifications at this level as well as extensive calcification extending more superiorly within the medial and upper thigh. Additional lobulated calcific foci/masses are noted more posteromedially in the thigh. Recurrent vascular tumors at this level cannot be excluded. Extensive muscular atrophy is noted throughout. Extensive varicosities noted within the anterior soft tissues. Impression: 1. Extensive signal abnormality seen throughout the visualized soft tissues of the thigh and anterior knee consistent with the patient's history of multiple vascular malformations/lesions with extensive postsurgical changes. Within the medial anterior musculature and soft tissues at the level of the distal tibia there is prominent enhancing signal abnormality measuring 4.7 x 2.6 centimeters. In correlation with the recent CT scan there are associated peripheral calcifications at this level as well as extensive calcification extending more superiorly within the medial and upper thigh. Additional lobulated calcific foci/masses are noted more posteromedially in the thigh. Recurrent vascular tumors at this level cannot be excluded. Extensive muscular atrophy is noted throughout. Extensive varicosities noted within the anterior soft tissues. 2. Prominent fraying and irregularity noted at the distal quadriceps tendon concerning for prominent partial/near complete tearing. 3. Moderate grade sprain of the posterior cruciate ligament. 4. Blunting of the tip of the body of the lateral meniscus may represent a small tear. 5. Patella is inferiorly displaced. Foreshortening of the patellar tendon. Prominent reactive edema noted within the mid to lower pole of the posterior patella which may represent bone bruising versus subchondral fracturing versus subchondral osseous injury. 6. Prominent ossific density measuring 1.2 centimeters at the anterior tibial tubercle with some reactive edema. 7. Small loculated knee joint effusion.
--- NOTE | 2017-02-10 15:43 | MRI ---
MRI left thigh History: Vascular tumors. Acute onset pain. Comparison: CT scan dated 02/07/2017 Technique: Multi-echo multiplanar sequences were performed through the left thigh without the use of intravenous contrast. Findings: Prominent muscular atrophy seen throughout the visualized soft tissues of the medial, lateral, and anterior thigh. Throughout the left thigh, there are multiple confluent masses / mass like foci/lesions with surrounding serpiginous flow voids suggestive for vascular tumors/neoplasm/vascular malformations. For example, within the inferior medial thigh a heterogeneous focus/lesion measures 5.8 x 2.1 centimeters, more laterally at that level at an additional collection/focus measures 3.1 x 2.2 centimeters, more posteromedially an additional collection measures 6.4 x 3.9 centimeters. In correlation with the CT, there are extensive calcifications/ calcified foci associated with these lesions. Additional extensive involvement of the anterior thigh with associated prominent sheet like calcifications within the musculature and or lesions which measure up to 16 centimeters in cranial caudal dimension. Additional areas of signal abnormality are noted within upper thigh. These are innumerable throughout the thigh. More distally, there appears to be prominent partial/near complete tearing of the distal quadriceps tendon. Reactive edema is noted within the bony patella which may represent bone bruising and or subchondral fracturing. Impression: 1. Prominent muscular atrophy seen throughout the visualized soft tissues of the medial, lateral, and anterior thigh. 2. Throughout the left thigh, there are multiple confluent masses / mass like foci/lesions with surrounding serpiginous flow voids suggestive for vascular tumors/neoplasm/vascular malformations. For example, within the inferior medial thigh a heterogeneous focus/lesion measures 5.8 x 2.1 centimeters, more laterally at that level at an additional collection/focus measures 3.1 x 2.2 centimeters, more posteromedially an additional collection measures 6.4 x 3.9 centimeters. In correlation with the CT, there are extensive calcifications/ calcified foci associated with these lesions. Additional extensive involvement of the anterior thigh with associated prominent sheet like calcifications within the musculature and or lesions which measure up to 16 centimeters in cranial caudal dimension. Additional areas of signal abnormality are noted within upper thigh. These are innumerable throughout the thigh. 3. More distally, there appears to be prominent partial/near complete tearing of the distal quadriceps tendon. Reactive edema is noted within the bony patella which may represent bone bruising and or subchondral fracturing.
== END 2017-02-08 00:19 | disposition left against medical advice (07) ==
LOC: ED 19:17 → ERH 02-07 05:13 → 5RSO 02-07 06:23
PROVIDERS: ADMIT Hospitalist; ATTEND Internal Medicine
DX: S83.8X2A Sprain of other specified parts of left knee, initial encounter (principal); M79.89 Other specified soft tissue disorders; M79.605 Pain in left leg; W01.0XXA Fall on same level from slipping, tripping and stumbling without subsequent striking against object, initial encounter; Y93.89 Activity, other specified; Y92.9 Unspecified place or not applicable; Y99.8 Other external cause status
CPT/HCPCS: 73552; 73560; 73700; 73701; 73718; 73723; 80053; 85025; 85610; 85730; 96372; 96374; 99285; A9579; G0378; J2270; J2405; J7040; Q9967

== ENCOUNTER 2017-02-15 04:10 | Emergency (ER) | payer MEDICAID ==
[2017-02-15 04:19] VITALS: BMI 17.2
[2017-02-15 04:27] VITALS: BP 116/69; PULSE 90; RESP 16; TEMP 98.4; O2SAT 100
--- NOTE | 2017-02-15 04:53 | ED PDOC ---
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 She was with her who was admitted today and felt a pop in her L leg while she was sitting. She denies any new swelling and is able to walk without any issues. Patient was recently admitted here last week for the same issue and eloped. She denies CP, SOB, n/v/d, numbness/ tingling. I personally saw the patient near the ICU half hour before she came to ED and was bending without any issues trying to get a soda out of the vending machine. Time/Duration: 1 hour Symptom Course: Unchanged Quality: Aching Severity Level: 5 Activities at Onset: Rest Context: Sitting Past Medical History - Provider Review Nursing Documentation Reviewed: Yes - Cardiac Hx Cardiac Disorders: No - Pulmonary Hx Respiratory Disorders: Yes Hx Asthma: Yes - Neurological Hx Neurological Disorder: No - HEENT Hx HEENT Disorder: No - Renal Hx Renal Disorder: No - Endocrine/Metabolic Hx Endocrine Disorders: No - Hematological/Oncological Hx Blood Disorders: Yes Other/Comment: left leg vascular tumor - Integumentary Hx Dermatological Disorder: No - Musculoskeletal/Rheumatological Hx Musculoskeletal Disorders: No Hx Falls: No - Gastrointestinal Hx Gastrointestinal Disorders: No - Genitourinary/Gynecological Hx Genitourinary Disorders: No - Psychiatric Hx Psychophysiologic Disorder: No Hx Substance Use: No - Surgical History Other/Comment: tumor reduction X4 Family/Social History - Physician Review Nursing Documentation Reviewed: Yes Family/Social History: No Known Family HX Smoking Status: Never Smoked Hx Alcohol Use: No Hx Substance Use: No Allergies/Home Meds Allergies/Adverse Reactions: Allergies tramadol Allergy (Mild, Verified 02/07/17 14:16) RASH Home Medications: Home Meds Medication Instructions Recorded Confirmed Hydrocodone/Acetaminophen [Vicodin 5 - 300 mg PO Q6 PRN 02/15/17 02/15/17 5 mg-300 mg] Review of Systems - Physician Review All systems were reviewed & negative as marked: Yes - Review of Systems Constitutional: Normal. absent: Fevers Eyes: Normal ENT: Normal Respiratory: Normal. absent: SOB, Cough Cardiovascular: Normal. absent: Chest Pain Gastrointestinal: Normal. absent: Abdominal Pain, Diarrhea, Nausea, Vomiting Genitourinary Female: Normal. absent: Dysuria, Frequency, Hematuria Musculoskeletal: Other (L leg pain ) Skin: Normal. absent: Rash, Pruritis Neurological: Normal. absent: Headache Endocrine: Normal Psychiatric: Normal Physical Exam Vital Signs Reviewed: Yes Vital Signs Temp Pulse Resp BP Pulse Ox 02/15/17 04:26 98.4 F 90 16 116/69 100 Temperature: Afebrile Blood Pressure: Normal Pulse: Regular Respiratory Rate: Normal Appearance: Positive for: Well-Appearing, Non-Toxic, Comfortable Pain Distress: None Mental Status: Positive for: Alert and Oriented X 3 - Systems Exam Head: Present: Atraumatic, Normocephalic Pupils: Present: PERRL Extroacular Muscles: Present: EOMI Conjunctiva: Present: Normal Mouth: Present: Moist Mucous Membranes Neck: Present: Normal Range of Motion Respiratory/Chest: Present: Clear to Auscultation, Good Air Exchange. No: Respiratory Distress, Accessory Muscle Use Cardiovascular: Present: Regular Rate and Rhythm, Normal S1, S2. No: Murmurs Abdomen: Present: Normal Bowel Sounds. No: Tenderness, Distention, Peritoneal Signs Back: Present: Normal Inspection Upper Extremity: Present: Normal Inspection. No: Cyanosis, Edema Lower Extremity: Present: Tenderness (L thigh ), Deformity (L thigh enlargement ). No: Edema Neurological: Present: GCS=15, CN II-XII Intact, Speech Normal Skin: Present: Warm, Dry, Normal Color. No: Rashes Psychiatric: Present: Alert, Oriented x 3, Normal Insight, Normal Concentration Medical Decision Making ED Course and Treatment: 02/15/17 04:49 Impression: This is a 21Y F with PMH of a chronic L vascular tumor here for L leg pain for the past hour while sitting. [place] [facility] [place] and eloped. Plan: -- Motrin PO --Reassess Prior Visits: Notes and results from previous visits were reviewed. Discharge Instructions: Re-evaluation. Patient feels better. Discussed results and plan with patient who expresses understanding. All questions answered and there is agreement with the plan to discharge home with instructions. Patient stable for discharge. Return if symptoms persist or worsen. - Medication Orders Current Medication Orders: Discontinued Medications Ibuprofen (Motrin Tab) 600 mg PO STAT STA Stop: 02/15/17 04:47 Disposition/Present on Arrival - Present on Arrival Any Indicators Present on Arrival: No History of DVT/PE: No History of Uncontrolled Diabetes: No Urinary Catheter: No History of Decub. Ulcer: No History Surgical Site Infection Following: None - Disposition Have Diagnosis and Disposition been Completed?: Yes Diagnosis: Leg pain Disposition: HOME/ ROUTINE Disposition Time: 05:02 Patient Plan: Discharge Patient Problems: Current Active Problems Problem Status Onset Leg pain Acute Condition: GOOD Discharge Instructions (ExitCare): Leg Pain (ED) Print Language: ARGENTINE Additional Instructions: Ms. Stovall, thank you for letting us take care of you today. Your provider was Dr. Garcia. You were treated for L leg pain. The emergency medical care you received today was directed at your acute symptoms. If you were prescribed any medication, please fill it and take as directed. It may take several days for your symptoms to resolve. Return to the Emergency Department if your symptoms worsen, do not improve, or if you have any other problems. Please contact your doctor or call one of the physicians/clinics you have been referred to that are listed on the Patient Visit Information form that is included in your discharge packet. Bring any paperwork you were given at discharge with you along with any medications you are taking to your follow up visit. Our treatment cannot replace ongoing medical care by a primary care provider (PCP) outside of the emergency department. Thank you for allowing the [facility] team to be part of your care today.
== END 2017-02-15 05:12 | disposition home or self-care (01) ==
LOC: ED 04:10
DX: M79.605 Pain in left leg (principal)